=== PATIENT | male | born 2000 | race African-American/Black ===

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

== ENCOUNTER 2019-05-22 20:43 | Emergency (ER) | payer OTHER ==
--- NOTE | 2019-05-22 21:20 | ED ---
Lower Extremity - HPI Summary HPI Summary: 19 yo male presents with LEFT ankle injury. He tells me that he was playing soccer and inverted his left ankle about 1 hour [employer]. Since that time has had pain and swelling with inability to ambulate due to pain. The agency trainer placed an WADE wrap and brought him to the ED. Nothing OTC for discomfort. Denies numbness or tingling. - History of Current Complaint Chief Complaint: EDExtremityLower Stated Complaint: LEFT ANKLE INJURY PER PT Time Seen by Provider: 05/22/19 21:19 Hx Obtained From: Patient Severity Initially: Moderate Severity Currently: Moderate Pain Intensity: 7 Pain Scale Used: 0-10 Numeric - Allergies/Home Medications Allergies/Adverse Reactions: Allergies Allergy/AdvReac Type Severity Reaction Status Date / Time No Known Allergies Allergy Verified 05/22/19 20:52 PMH/Surg Hx/FS Hx/Imm Hx Endocrine/Hematology History: Denies: Hx Diabetes Cardiovascular History: Denies: Hx Deep Vein Thrombosis Respiratory History: Denies: Hx Asthma, Hx Chronic Obstructive Pulmonary Disease (COPD) Neurological History: Denies: Hx CVA, Hx Headaches - Surgical History Surgical History: None - Immunization History Immunizations Up to Date: Yes Infectious Disease History: No Infectious Disease History: Denies: Traveled Outside the [place] in Last 30 Days - Family History Known Family History: Positive: Non-Contributory - Social History Occupation: Student Lives: Dormitory/Roommates Alcohol Use: Occasionally Substance Use Type: Reports: None Smoking Status (MU): Never Smoked Tobacco Review of Systems Constitutional: Negative Cardiovascular: Negative Respiratory: Negative Musculoskeletal: Other - Left ankle pain Neurological: Negative Psychological: Normal All Other Systems Reviewed And Are Negative: No Physical Exam - Summary Physical Exam Summary: GENERAL: NAD. WDWN. No pain distress. SKIN: No rashes, sores, lesions, or open wounds. CHEST: No accessory muscle use. Breathing comfortably and in no distress. CV: Pulses intact PT and DP. Cap refill <2seconds MSK: LEFT ANKLE: Moderate edema about lateral malleolus. Moderate TTP posterior lateral malleolus. Pain with dorsiflexion. Negative [place] test. NEURO: Alert. Sensations intact and symmetric B/L LEs PSYCH: Age appropriate behavior. Triage Information Reviewed: Yes Vital Signs On Initial Exam: Initial Vitals Temp Pulse Resp BP Pulse Ox 98.3 F 65 16 138/66 99 05/22/19 20:48 05/22/19 20:48 05/22/19 20:48 05/22/19 20:48 05/22/19 20:48 Vital Signs Reviewed: Yes Procedures - Sedation Patient Received Moderate/Deep Sedation with Procedure: No Diagnostics - Vital Signs Vital Signs Temp Pulse Resp BP Pulse Ox 05/22/19 20:48 98.3 F 65 16 138/66 99 - Laboratory Lab Statement: Any lab studies that have been ordered have been reviewed, and results considered in the medical decision making process. - Radiology Ankle XR Radiology Interpretation Completed By: ED Physician Summary of Radiographic Findings: Likely avulsion fracture of posterior malleolus seen on lateral view. Dr. España agrees. Lower Extremity Course/Dx - Course Course Of Treatment: XR as above. Discussed Orthoglass splint with pt and he prefers something that he can remove. He was placed in an WADE wrap, gel splint, and crutches to use. Recommend f/u with Ortho this week for recheck - Diagnoses Provider Diagnoses: Avulsion fracture of left ankle Discharge ED - Sign-Out/Discharge Documenting (check all that apply): Patient Departure - Discharge Plan Condition: Stable Disposition: HOME Patient Education Materials: Ankle Fracture (ED) Referrals: No Primary Care Phys,NOPCP [Primary Care Provider] - Steven Feliz MD [Medical Doctor] - As Soon As Possible Additional Instructions: If you develop a fever, shortness of breath, chest pain, new or worsening symptoms - please call your PCP or go to the ED immediately. 1) Rest, Ice, and elevate your ankle as much as possible 2) Use the wrap, gel splint, and crutches 3) Please call Orthopedics to schedule an appointment for a recheck this week - Billing Disposition and Condition Condition: STABLE Disposition: Home
[2019-05-22 21:58] VITALS: BP 104/72
== END 2019-05-22 21:58 | disposition home or self-care (01) ==
LOC: ED 20:43 → MERGE 20:43 → ED 21:58
DX: S82.892A Other fracture of left lower leg, initial encounter for closed fracture (principal); X50.1XXA Overexertion from prolonged static or awkward postures, initial encounter; Y93.66 Activity, soccer; Y92.322 Soccer field as the place of occurrence of the external cause
CPT/HCPCS: 99281